=== PATIENT | male | born 1930 | race Caucasian/White ===

== ENCOUNTER 2020-07-05 21:50 | Inpatient (IN) | payer MEDICARE ==
[2020-07-05] MEDS ORDERED: fentaNYL Citrate/PF 2,000 MCG in Sodium Chloride 0.9% 60 ML IV SCH (22:00)
[2020-07-05 22:12] LABS: Hemoglobin 12.2 g/dL (14.0-18.0); Mean Corpuscular HGB CONC 32.7 g/dL (32.0-36.0); Mean Corpuscular Hemoglobin 35.1 pg (27.0-31.0); Mean Platelet Volume 10.5 fL (7.4-10.4); Platelet Count 141 thou/uL (130-400); RBC Distribution Width 12.7 % (11.5-14.5); Red Blood Cell (RBC) Count 3.48 mill/uL (4.70-6.10); White Blood Cell (WBC) Count 6.5 thou/uL (4.8-10.8)
[2020-07-05 22:17] LABS: INR-International Normal Ratio 1.2; PTT 26.2 sec (22.9-36.1); Prothrombin Time 15.1 sec (12.0-14.7)
[2020-07-05 22:26] LABS: #Basophils 0.1 thou/uL (0.0-0.2); #Eosinphils 0.1 thou/uL (0.0-0.7); #Lymphocytes 1.9 thou/uL (1.20-3.40); #Monocytes 0.4 thou/uL (0.11-0.59); %Basophils 1.4 % (0.0-1.0); %Eosinophils 1.2 % (0.0-10.0); %Lymphocytes 29.3 % (21.0-51.0); %Monocytes 5.9 % (0.0-10.0); %Neutrophils 62.2 % (42.0-75.0); ALT (SGPT) 14 U/L (8-55); AST (SGOT) 22 U/L (5-34); Albumin 4.1 g/dL (3.4-4.8); Alkaline Phosphatase 79 U/L (40-110); Anion Gap 15 mmol/L (10-20); BUN (Urea Nitrogen) 18 mg/dL (8.4-25.7); Bilirubin, Total 0.8 mg/dL (0.2-1.2); CK (CPK) 111 U/L (30-200); Calc. Creatinine Clearance 0 mL/min (70-130); Calcium 8.6 mg/dL (7.8-10.44); Carbon Dioxide 24 mmol/L (23-31); Chloride 103 mmol/L (98-107); Globulin 3.4 g/dL (2.4-3.5); Glucose 123 mg/dL (83-110); MDiff Complete? YES; Macrocytosis SLIGHT = 6-15 cells (100X) (0-5/hpf); Platelet Morphology Comment Appears Adequate; Potassium 3.3 mmol/L (3.5-5.1); Protein, Total 7.5 g/dL (5.8-8.1); Sodium 139 mmol/L (136-145)
[2020-07-05 22:30] LABS: Acetaminophen Less than 6.0 mcg/mL (10.0-30.0); Alcohol Less than 10 mg/dL (Less than 10); Magnesium 2.1 mg/dL (1.6-2.6); Salicylate Less than 8.0 mg/dL (15.0-30.0)
[2020-07-05 22:53] LABS: Bacteria/HPF None Seen HPF (None Seen); Bilirubin Negative (Negative); Blood, Urine 3+ (Negative); Clarity Clear (Clear); Glucose, Urine (Dipstick) Normal (Negative); Ketone, Urine Trace mg/dL (Negative); Leukocyte Negative Leu/uL (Negative); Nitrite Negative (Negative); Protein, Urine (Dipstick) 30 mg/dL (Neg-Trace); RBC/HPF 0-3 HPF (0-3); Specific Gravity, Urine 1.012 (1.002-1.036); Squamous Epithelial None Seen HPF (0-3); Urobilinogen Normal mg/dL (Less than 2); WBC/HPF 0-3 HPF (0-3)
[2020-07-05 22:55] LABS: Actual Bicarbonate (HCO3a) 20.4 mEq/L (22-28); Analyzer IN Cardio ER; Base Excess (BEa) -1.4 mEq/L (-2.0 to +3.0); CO2 Tension 27.3 mmHg (35.0-45.0); Calcium, Ionized (arterial) 1.01 mmol/L (1.12-1.30); Hemoglobin (Hb) 10.1 g/dL (14.0-18.0); O2 Tension (PaO2), arterial 177.5 mmHg (> 60.0); Potassium - ABG Lab 3.47 mmol/L (3.70-5.30); pH, Arterial 7.49 (7.35-7.45)
[2020-07-05 22:59] LABS: Puncture Site RRA
[2020-07-05 23:01] LABS: ALV-art Gradient 216.175 mmHg (0-20)
[2020-07-05 23:03] LABS: Amphetamine Not Detected (NotDetected); Barbiturates Screen Not Detected (NotDetected); Benzodiazepine Screen Not Detected (NotDetected); Cocaine Metabolite Screen Not Detected (NotDetected); Medtox Control Line Valid? VALID (VALID); Medtox Reader # READER 4; Methadone Not Detected (NotDetected); Methamphetamine Not Detected (NotDetected); Opiate Screen Not Detected (NotDetected); Oxycodone Screen Not Detected (NotDetected); Phencyclidine (PCP) Not Detected (NotDetected); THC/Cannabinoid Screen Not Detected (NotDetected); Tricyclic Screen Not Detected (NotDetected)
[2020-07-05] MEDS ORDERED: levETIRAcetam in NS 1,500 MG in Premix Bag 1 BAG IVPB SCH (23:15)
[2020-07-05] MEDS ORDERED: Mannitol 12.5 GM/50 ML ONE ×2 (23:19→23:25)
[2020-07-05] MEDS ORDERED: manNITOL 20% 0 ML ONE (23:21)
--- NOTE | 2020-07-05 23:26 | PDOC.FPRHP ---
- History of Present Illness Chief Complaint: Found down History of Present Illness: Patient is an 89 yo male with PMH of hypotension and HF who was brought to the ED after being found down by his . According to reports, the patient had a normal day and after eating dinner at 1900, went to get ready for bed. Around 2 100, the patient's went to check on him and he was on the ground, unresponsive. EMS was called. ON arrival to ED, his BP was 212/116 and he had a GCS of 5. He was originally withdrawing to painful stimuli. He was sedated and intubated in the ED. Neurosurgery was consulted from the ED and mannitol was given. A cardene drip was also started for BP control. ED Course: Mannitol, Keppra, Fentanyl, Diprivan, Rocuronium, Cardene, Amidate, 1 L NS - Allergies/Adverse Reactions Allergies Allergy/AdvReac Type Severity Reaction Status Date / Time No Known Allergies Allergy Verified 07/06/20 02:26 - History PMHx: Hypotension, HF PSHx: Unable to obtain, family unsure FHx: Noncontributory Social: Lives at home with - Review of Systems ROS unobtainable: due to endotracheal tube - Vital signs BP: 132/66 HR: 97 RR: 18 Tmax: 96.1 Pox: 99% on vent Wt: 80 kg - Physical Exam -Constitutional: intubated and sedated HEENT: normocephalic and atraumatic, no scleral icterus -HEENT: pinpoint but reactive on the right, nonreactive pupil on left; ET tube in place Heart: RRR, no edema -Heart: 3/6 systolic murmur with radiation to carotids Lungs: CTAB, no rales/rhonchi Abdomen: bowel sounds present -Neurological: See above for pupils, patient is sedated and neuro exam unable to be obtained Skin: no rash/lesions, no jaundice Heme/Lymphatic: no unusual bruising or bleeding, no purpura, no petechia -Psychiatric: GCS 3 FMR H&P: Results - Labs Result Diagrams: 07/06/20 03:12 07/06/20 03:12 Lab results: WBC 6.5 thou/uL (4.8-10.8) 07/05/20 21:56 Hgb 12.2 g/dL (14.0-18.0) L 07/05/20 21:56 Hct 37.3 % (42.0-52.0) L 07/05/20 21:56 MCV 107.0 fL (78.0-98.0) H 07/05/20 21:56 Plt Count 141 thou/uL (130-400) 07/05/20 21:56 Neutrophils % 62.2 % (42.0-75.0) 07/05/20 21:56 ABG pH 7.49 (7.35-7.45) H 07/05/20 22:30 ABG pCO2 27.3 mmHg (35.0-45.0) L 07/05/20 22:30 ABG pO2 177.5 mmHg (> 60.0) H 07/05/20 22:30 Sodium 139 mmol/L (136-145) 07/05/20 21:56 Potassium 3.3 mmol/L (3.5-5.1) L 07/05/20 21:56 Chloride 103 mmol/L (98-107) 07/05/20 21:56 Carbon Dioxide 24 mmol/L (23-31) 07/05/20 21:56 BUN 18 mg/dL (8.4-25.7) 07/05/20 21:56 Creatinine 1.26 mg/dL (0.7-1.3) 07/05/20 21:56 Glucose 123 mg/dL (83-110) H 07/05/20 21:56 Lactic Acid 1.9 mmol/L (0.5-2.2) 07/05/20 21:56 Calcium 8.6 mg/dL (7.8-10.44) 07/05/20 21:56 Total Bilirubin 0.8 mg/dL (0.2-1.2) 07/05/20 21:56 AST 22 U/L (5-34) 07/05/20 21:56 ALT 14 U/L (8-55) 07/05/20 21:56 Alkaline Phosphatase 79 U/L (40-110) 07/05/20 21:56 Creatine Kinase 111 U/L (30-200) 07/05/20 21:56 B-Natriuretic Peptide 88.4 pg/mL (0-100) 07/05/20 21:56 Serum Total Protein 7.5 g/dL (5.8-8.1) 18 21:56 Albumin 4.1 g/dL (3.4-4.8) 07/05/20 21:56 Lipase 35 U/L (8-78) 07/05/20 21:56 Urine Ketones Trace mg/dL (Negative) A 07/05/20 22:35 Urine Blood 3+ (Negative) A 07/05/20 22:35 Urine Nitrite Negative (Negative) 07/05/20 22:35 Ur Leukocyte Esterase Negative Xiomara/uL (Negative) 07/05/20 22:35 Urine RBC 0-3 HPF (0-3) 07/05/20 22:35 Urine WBC 0-3 HPF (0-3) 07/05/20 22:35 Ur Squamous Epith Cells None Seen HPF (0-3) 07/05/20 22:35 Urine Bacteria None Seen HPF (None Seen) 07/05/20 22:35 - Radiology Interpretation CT scan - head Status: image reviewed by me Additional comment: Large intraparenchymal hemorrhage with midline shift Chest x-ray Status: image reviewed by me, report reviewed by me Additional comment: 1. Cardiomegaly with mild pulmonary vascular congestion 2. questionable subcentimeter pulmonary nodule 3. Nasogastric tube in place 4. Endotracheal tube overlying T1-2 level FMR H&P: A/P - Problem List (1) Intraparenchymal hemorrhage of brain Current Visit: Yes Status: Acute Code(s): I61.9 - NONTRAUMATIC INTRACEREBRAL HEMORRHAGE, UNSPECIFIED (2) Hypertension Current Visit: Yes Status: Acute Code(s): I10 - ESSENTIAL (PRIMARY) HYPERTENSION (3) Heart failure Current Visit: Yes Status: Chronic Code(s): I50.9 - HEART FAILURE, UNSPECIFIED (4) Hypokalemia Current Visit: Yes Status: Acute Code(s): E87.6 - HYPOKALEMIA - Plan Large Intraparenchymal Hemorrhage - Neuro surgery consulted from ED, recommended mannitol, poor prognosis - s/p sedation, intubation, mannitol, cardene, propofol drip in ED - will continue propofol and cardene for BP goal of systolic <140 - family is aware of poor prognosis and would like to make a decision regarding care tomorrow - neuro checks q2hr - monitor glucose History of HF - aware - mild vascular congestion reported on Xray - will monitor History of hypotension - aware - hypertensive on arrival - goal BP as above Hypokalemia - will continue to monitor and replace as needed Code: DNR IVF: SL Diet: NPO PPx: IV pepcid, will switch to protonix if continued intubation Dispo: will admit to CCU, goals of care discussion with family in the morning FMR H&P: Upper Level - Plan Date/Time: 07/05/202325 Bry Anderson DO, have evaluated this patient and agree with findings/plan as outlined by equine intern resident. Pertinent changes/additions are listed here. This is an 89 yo male with a pmh of aortic stenosis, hypotension, and heart dwayne lure who presented to the ER via EMS after being found down by his . She reports last normal was at 1900 tonight before he went to the bathroom where she found him down after 10-20 minutes. EMS reports that he was unresponsive with a GCS of [id number]. In the ER, he was intubated and started on propofol and cardene for sedation/BP control. He was found to initially have a BP of 200s/110s. In the ER, he had a CT brain that showed a massive right sided parenchymal bleed with mass effect and midline shift. Neurosurgery was consulted and report very little could be done and he is not likely to recover from this event. Both neurosurgery and the ER physician discussed with family as far as the current condition and prognosis. At this time, the patient's and [id number] are at bedside and report understanding of the situation. They would like to keep him on the ventilator overnight to make sure there was nothing they missed and will discuss extubation in the morning. The do ask that if he codes, they do not want CPR performed and state that he would want to . Objective: Vitals: BP 132/66, HR 97, RR 18, Temp 96.1, SPo2 99% on vent, Wt 80 kg General: Intubated and sedated, GCS of 3 HEENT: Intubated, AT/NC Cardio: 3/6 systolic murmur consistent with , tachycardic Respiratory: Coarse breath sounds Abdomen: Soft, nontender Extremities: No edema, pulses present Neuro: Difficult to assess, left pupil dilated to 6mm and non-reactive, right pupil 2mm and reactive to light A/P: Massive right sided intraparenchymal hemorrhage with mass effect and midline shift -Admit to CCU -Continue Ventilation and sedation -Continue propofol drip and cardene drip for SBP <140s -S/P mannitol in the ER -Will watch for change -Consider family wishes in the AM -Will monitor urine output -Continue warming Heart failure -CXR shows mild congestion -Will monitor respiratory status -Baseline at this time Mild macrocytic anemia Mild hypokalemia -Will recheck in the AM Family is otherwise unable to provide further history Code: DNR Prophylaxis: protonix Family: and [id number] at bedside and aware of current condition and plan Fluids: SL Drips: Cardene and propofol Vent settings: SIMV 12, TV 500, PS 10, PEEP 5, FIO2 40% Disposition: Pending family wishes PCP: Unknown Addendum - Attending - Attending Attestation Date/Time: 07/06/20 0643 I personally evaluated the patient and discussed the management with Dr. Dilma welch/Mylene at 0030 today. I agree with the History, Examination, Assessment and Plan documented above with any addition or exceptions noted below. Large hemorrhagic stroke with midline shift. Intubated in ER. Continue with ventilation and have family meeting in the am for goals of care. Poor pr ognosis.
[2020-07-05] MEDS ORDERED: niCARdipine 25 MG in Sodium Chloride 0.9% 250 ML 250 ML IVPB PRN (23:46)
[2020-07-05] MEDS ORDERED: Ventilator Sedation Protocol 1 EACH FS ONE (23:50)
[2020-07-06] LABS: SARS-CoV-2 NAA Rapid Test Not Detected (NotDetected)
--- NOTE | 2020-07-06 00:02 | RAD ---
EXAM: CHEST ONE VIEW HISTORY: Level 1 stroke. COMPARISON: 07/05/2020 FINDINGS: Cardiac silhouette is magnified by projection but does appear enlarged. Endotracheal tube is noted in place, but the tip of the endotracheal tube is well above the thoracic inlet overlying the T1-2 level. Nasogastric tube is noted in place with tip overlying the region of the gastric cardia. Nasoga stric tube should be mildly advanced. This appeared to be mild pulmonary vascular congestion. No consolidation or pleural fluid is seen. There is suggestion of a small subcentimeter nodular density at the right lung base. This could be related to overlying nipple shadow. Follow-up PA and lateral chest x-ray with nipple markers in place is recommended. Mild degenerative change are seen in the spi ne. Vascular calcification seen in thoracic aorta. IMPRESSION: 1. Cardiomegaly with mild pulmonary vascular congestion. Correlation for mild CHF is suggested. 2. Question of subcentimeter pulmonary nodule right lung base. This could be related to overlying nip ple shadow. Follow-up chest x-ray with nipple markers in place is suggested. 3. Nasogastric tube in place with tip likely overlying the region of the gastric cardia. Nasogastric tube should be mildly advanced. 4. Tip of the endotracheal tube is overlying the T1-2 level
[2020-07-06] MEDS ORDERED: Propofol BOLUS 1,000 MG/100 ML VIAL IV PRN (00:15)
[2020-07-06] MEDS ORDERED: DISCONTINUE PREVIOUS NARCOTIC PAIN MEDICATIONS AND BENZODIAZEPINES FS SCH (00:15)
[2020-07-06] MEDS ORDERED: Lorazepam 2 MG/ML VIAL SLOW IVP PRN ×3 (00:15→10:08)
[2020-07-06] MEDS ORDERED: fentaNYL Citrate/PF 2,000 MCG in Sodium Chloride 0.9% 60 ML IV SCH (00:15)
[2020-07-06] MEDS ORDERED: Fentanyl BOLUS 250 ML IVPB PRN (00:15)
[2020-07-06] MEDS ORDERED: Morphine 2 MG/ML VIAL SLOW IVP PRN (00:15)
[2020-07-06] MEDS ORDERED: Propofol 1,000 MG/100 ML VIAL IV PRN (00:15)
[2020-07-06 02:27] VITALS: BMI 21.2
[2020-07-06 04:17] LABS: #Lymphocytes 0.9 thou/uL (1.20-3.40); #Monocytes 1.1 thou/uL (0.11-0.59); #Neutrophils 13.7 thou/uL (1.40-6.50); %Basophils 0.1 % (0.0-1.0); %Eosinophils 0.1 % (0.0-10.0); %Lymphocytes 5.6 % (21.0-51.0); %Neutrophils 87.3 % (42.0-75.0); Hemoglobin 11.2 g/dL (14.0-18.0); Mean Corpuscular HGB CONC 33.7 g/dL (32.0-36.0); Mean Corpuscular Hemoglobin 36.6 pg (27.0-31.0); Mean Platelet Volume 9.7 fL (7.4-10.4); Platelet Count 131 thou/uL (130-400); RBC Distribution Width 12.5 % (11.5-14.5); Red Blood Cell (RBC) Count 3.06 mill/uL (4.70-6.10); White Blood Cell (WBC) Count 15.7 thou/uL (4.8-10.8)
[2020-07-06 04:38] LABS: Anion Gap 13 mmol/L (10-20); BUN (Urea Nitrogen) 17 mg/dL (8.4-25.7); Calc. Creatinine Clearance 44 mL/min (70-130); Calcium 8.2 mg/dL (7.8-10.44); Carbon Dioxide 27 mmol/L (23-31); Chloride 102 mmol/L (98-107); Glucose 207 mg/dL (83-110); Potassium 3.3 mmol/L (3.5-5.1); Sodium 139 mmol/L (136-145)
[2020-07-06 07:12] VITALS: BP 114/57
--- NOTE | 2020-07-06 07:38 | CT ---
NONCONTRAST CT HEAD: HISTORY: Level I stroke. Found on bathroom floor. COMPARISON: None. FINDINGS: There is a very large area of increased density related to intraparenchymal hemorrhage involving the majority of the left temporal lobe as well as a large portion of the left frontal lobe with adjacent surrounding edema. The greatest dimension of the hemorrhage in the left frontal lobe measures 10.3 cm AP x 6.4 cm transverse. There is evidence of intraventricular extension of hemorrhage. There is brenda ft of the midline structures to the right measuring approximately 2.8 cm. There is effacement of the left lateral ventricle with mild dilatation of the right lateral ventricle. Trapping of CSF right l ateral ventricle is a possibility. A small amount of hemorrhage is seen in the region of the 4th lanre tricle as well. Diminished attenuation is seen in the periventricular white matter which is nonspecific but likely at tributable to chronic small-vessel ischemic changes. Cerebral volume loss is present. A large amount of sulcal effacement is seen in the left cerebral hemisphere. Endotracheal tube is seen on the floral design teacher radiograph. There is opacification of ethmoidal air cells and nasal passages which may be related to the intubation. Mastoid air cells are clear. No calvarial fracture is identified. IMPRESSION: 1. Large intraparenchymal hemorrhage occupying the majority of the left temporal lobe and a large po rtion of the left frontal lobe with adjacent edema. 2. Mass effect left cerebral hemisphere with significant sulcal effacement as well as shift of the m idline structures to the right measuring 2.8 cm. 3. Intraventricular extension of hemorrhage. 4. Dilatation of the right lateral ventricle which could be related to volume loss, but trapping of CSF is a possibility. 5. The exact etiology for the large intraparenchymal hemorrhage is not able to be determined based o n this exam. Underlying lesion is a possibility. However, trauma, bleeding disorder or anticoagulat ion is a possibility. 6. The above findings were discussed with Dr. Duckworth in the emergency department on 05/05/2020 at 2219 hours. CODE CR POS: [facility]
[2020-07-06] MEDS ORDERED: Famotidine/PF 20 mg/2ml Vial SLOW IVP SCH (09:00)
[2020-07-06] MEDS ORDERED: Morphine 4 MG/ML VIAL SLOW IVP PRN (09:52)
[2020-07-06] MEDS ORDERED: Scopolamine 1.5 mg/72 hour Patch TD PRN ×2 (10:08)
[2020-07-06] MEDS ORDERED: diphenhydrAMINE 50 MG/ML VIAL IVP PRN (10:08)
[2020-07-06] MEDS ORDERED: Hyoscyamine Sulfate SL 0.125 mg Tablet SL PRN (10:08)
[2020-07-06] MEDS ORDERED: Ondansetron PF 4 MG/2 ML Vial IVP PRN (10:08)
[2020-07-06] MEDS ORDERED: Haloperidol Lactate 5 MG/ML VIAL SLOW IVP PRN (10:08)
[2020-07-06] MEDS ORDERED: chlorproMAZINE HCl 50 MG/2 ML AMP IVPB PRN ×2 (10:08)
--- NOTE | 2020-07-06 10:12 | CON ---
DATE OF CONSULTATION: 07/06/2020 CONSULTING PHYSICIAN: Estelita Farooq M.D. REASON FOR CONSULTATION: Acute respiratory failure related to brain hemorrhage. HISTORY OF PRESENT ILLNESS: The patient is an 89-year-old male who was found down at home by his yesterday. He just finished playing a round of golf. He was brought to the ER and found to have a massive left parietal brain hemorrhage with mass effect. Neurosurgery did not think there was anything that could be done. He was intubated for airway protection. The is since inactive. The patient is DNR and is now requesting withdrawal of care. PAST MEDICAL HISTORY: Hypertension and congestive heart failure. PAST SURGICAL HISTORY: Negative. FAMILY MEDICAL HISTORY: Unremarkable. SOCIAL HISTORY: Nonsmoker. Does not consume alcohol. ALLERGIES: NONE. MEDICATIONS PRIOR TO ADMISSION: Not known. REVIEW OF SYSTEMS: Unobtainable secondary to the patient's comatose state. PHYSICAL EXAMINATION: VITAL SIGNS: Pulse 58, blood pressure 145/66, O2 saturation 100%, respiratory rate 15. GENERAL: He is intubated and on mechanical ventilation. He is not currently receiving any sedation. HEENT: Pupils are dysconjugate in size and nonreactive to light. He has no gag reflex. NECK: No adenopathy or JVD. LUNGS: Clear. CARDIAC: S1 and S2. Slightly bradycardic. ABDOMEN: Soft and nontender. EXTREMITIES: No edema. He has slight withdrawal of his right hand. Otherwise, his withdrawal reflexes are flap. LABORATORY DATA: White blood count 15.7, hematocrit 33, and platelet count 131. The pH 7.49, pCO2 of 27, PO2 of 177. Sodium 139, potassium 3.3, chloride 102, CO2 of 27, BUN 17, creatinine 1.1, glucose 207. ASSESSMENT: 1. Massive brain hemorrhage. 2. Respiratory failure, requiring mechanical ventilation. PLAN: I had a long discussion with the patient's and the patient's [id number]. The patient did not want any heroic measures done in the event that he became incapacitated without any reasonable ability to recover. Neurosurgery has stated that the patient is inoperable and would be left with profound disability. I agree with their assessment. Based on this, the patient's has elected to withdraw care. Job ID: [id number]
--- NOTE | 2020-07-06 11:22 | CON ---
DATE OF CONSULTATION: 07/05/2020 TIME OF ENCOUNTER: 2305. Mr. Quintanilla is an 89-year-old man, an unfortunate case, who presented to the emergency department via EMS after found him down at home. He had gone to take a shower and she is going to check on him and found him on the bathroom floor unresponsive. Initial GCS was 4 in the field according to EMS, and then he was rapid sequence intubated. The GCS is now 3T. CT scan performed in the emergency department at [place] reveals massive devastating hemorrhage to the left cerebral hemisphere in its almost full entirety. Specifically, the left temporal lobe is almost completely encompassed with hemorrhage. There is profound left to right midline shift and compression and effacement of the left lateral ventricle and third ventricle. There is also what looks to be extension of hemorrhage into the left lateral ventricle. There is surrounding vasogenic edema. On exam, objectively, the patient is intubated and sedated with non-reliable neurologic examination, though I would expect him to have a poor one based off the imaging alone. I discussed with brother and in consultation room extensively. The patient has suffered what is most certainly a terminal hemorrhage as close to 0% chance for survival. I implore them that this is not amenable to any type of surgical intervention and would recommend comfort care measures only at this time. Family would like to think and discuss things over, but are reasonable in their expectations regarding the patient's prognosis. No additional intervention at this time. Job ID: [id number]
[2020-07-06 16:36] VITALS: TEMP 98.3
--- NOTE | 2020-07-07 01:02 | DIS ---
DATE OF ADMISSION: 07/05/2020 DATE OF DISCHARGE: 07/06/2020 SUMMARY DATE OF : 07/06/2029. TIME OF : 1434. CAUSE OF : Intracerebral hemorrhage. SECONDARY DIAGNOSES: 1. History of heart failure. 2. History of hypotension. 3. Hypokalemia. HOSPITAL COURSE: Patient is an 89-year-old male with a past history of heart failure, who was brought to the emergency department after being found down by his . The last time patient's had seen him normal was at 1900. At around 2100 she found him on the ground unresponsive. On arrival to the ED, patient's blood pressure was 212/116 and had a GCS of 5. He was sedated and intubated in the ED. Brain CT showed large intraparenchymal hemorrhage occupying the majority of the left temporal lobe and a large portion of the left frontal lobe with adjacent edema. Also showed mass effect and midline shift. Neurosurgery was consulted from the ED and they felt that this was most certainly a terminal hemorrhage with close to 0% chance for survival, not making him a surgical candidate. Patient's family was at bedside and informed the team that patient had wishes to be DNR and they requested withdrawal of care. He was extubated on 07/06/2020 around 10 a.m. He was then placed on comfort care. Patient's and 's brother were at bedside when patient passed. Job ID: [id number] [id number]
== END 2020-07-06 14:34 | disposition expired | DRG 64 ==
LOC: ERS 21:50 → EDBD 21:50 → CCU 21:58
PROVIDERS: ADMIT Family Medicine; ATTEND Family Medicine
PROC: 0BH17EZ Insertion of Endotracheal Airway into Trachea, Via Natural or Artificial Opening (ICD-10-PCS; principal; 2020-07-05)
PROC: 5A1935Z Respiratory Ventilation, Less than 24 Consecutive Hours (ICD-10-PCS; 2020-07-05)
PROC: 0D9670Z Drainage of Stomach with Drainage Device, Via Natural or Artificial Opening (ICD-10-PCS; 2020-07-05)
DX: I61.8 Other nontraumatic intracerebral hemorrhage (principal); G93.6 Cerebral edema; J96.00 Acute respiratory failure, unspecified whether with hypoxia or hypercapnia; G93.5 Compression of brain; I16.1 Hypertensive emergency; R40.2112 Coma scale, eyes open, never, at arrival to emergency department; R40.2212 Coma scale, best verbal response, none, at arrival to emergency department; Z51.5 Encounter for palliative care; I50.9 Heart failure, unspecified; Z66 Do not resuscitate; Z20.828 Contact with and (suspected) exposure to other viral communicable diseases; E87.6 Hypokalemia; R29.740 NIHSS score 40; R40.2332 Coma scale, best motor response, abnormal flexion, at arrival to emergency department; D53.9 Nutritional anemia, unspecified; Z78.1 Physical restraint status
CPT/HCPCS: 31500; 36415; 36600; 51702; 70450; 71045; 80048; 80053; 80306; 80307; 81003; 81015; 82550; 82805; 83605; 83690; 83735; 83880; 84443; 84484; 85025; 85610; 85730; 86850; 86900; 86901; 87040; 87086; 93005; 94002; 96361; 96365; 96366; 96368; 96375; 99292; J1953; J2150; J2704; J3010; J3490; J7050; J7799; U0002